=== PATIENT | female | born 1945 | race Caucasian/White ===

== ENCOUNTER 2020-03-17 05:53 | Outpatient (REF) | payer MEDICARE, MEDICAID, SELFPAY | END 2020-03-17 05:54 | disposition home or self-care (01) | LOC: HO.LAB 05:53 | PROVIDERS: PCP Internal Medicine; Visit Provider Internal Medicine | DX: Z20.828 Contact with and (suspected) exposure to other viral communicable diseases (principal) | CPT/HCPCS: C9803; U0003 ==

== ENCOUNTER 2020-04-30 06:42 | Outpatient (REF) | payer MEDICARE, MEDICAID, SELFPAY | END 2020-04-30 06:43 | disposition home or self-care (01) | LOC: HO.LAB 06:42 | PROVIDERS: PCP Internal Medicine; Visit Provider Internal Medicine | DX: Z20.822 Contact with and (suspected) exposure to COVID-19 (principal) | CPT/HCPCS: 36415; C9803; U0003 ==

== ENCOUNTER 2020-05-21 07:07 | Outpatient (REF) | payer MEDICARE, MEDICAID, SELFPAY | END 2020-05-21 07:08 | disposition home or self-care (01) | LOC: HO.LAB 07:07 | PROVIDERS: Visit Provider Internal Medicine | DX: Z20.822 Contact with and (suspected) exposure to COVID-19 (principal) | CPT/HCPCS: 36415; C9803; U0003; U0005 ==

== ENCOUNTER 2021-04-18 08:02 | Outpatient (REF) | payer MEDICARE, MEDICAID, SELFPAY ==
[2021-04-18 08:32] LABS: Binax Now Covid-19 Ag Positive (Negative)
[2021-04-18 08:33] LABS: Binax Internal Control QC Valid
== END 2021-04-18 08:03 | disposition home or self-care (01) ==
LOC: HO.LAB 08:02
PROVIDERS: Visit Provider Internal Medicine
DX: Z20.822 Contact with and (suspected) exposure to COVID-19 (principal)
CPT/HCPCS: C9803

== ENCOUNTER 2022-06-14 08:50 | Outpatient (REF) | payer MEDICARE, MEDICAID, SELFPAY ==
--- NOTE | ~2022-06-14 | XR_ITS ---
EXAMINATION: X-RAY RIGHT SHOULDER X-RAY LEFT SHOULDER CLINICAL INFORMATION: Pain. COMPARISON: None. TECHNIQUE: 2 views of each shoulder. FINDINGS: No acute fracture or subluxation. Mild to moderate joint space narrowing with subcortical sclerosis and osteophytes in the right acromioclavicular joint, suggestive of degenerative osteoarthrosis. No abnormal soft tissue calcifications. The included portions of the lungs, ribs and cardiomediastinum are within normal limits. XR/XR shoulder LT min 2V IMPRESSION: 1. No acute fracture or subluxation. 2. 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
--- NOTE | ~2022-06-14 | XR_ITS ---
EXAMINATION: X-RAY RIGHT SHOULDER X-RAY LEFT SHOULDER CLINICAL INFORMATION: Pain. COMPARISON: None. TECHNIQUE: 2 views of each shoulder. FINDINGS: No acute fracture or subluxation. Mild to moderate joint space narrowing with subcortical sclerosis and osteophytes in the right acromioclavicular joint, suggestive of degenerative osteoarthrosis. No abnormal soft tissue calcifications. The included portions of the lungs, ribs and cardiomediastinum are within normal limits. XR/XR shoulder RT min 2V IMPRESSION: 1. No acute fracture or subluxation. 2. 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
--- NOTE | ~2022-06-14 | XR_ITS ---
EXAMINATION: XR LUMBOSACRAL SPINE CLINICAL INFORMATION: Low back pain. COMPARISON: None TECHNIQUE: Three views of the lumbosacral spine. FINDINGS: No acute compression deformity or subluxation. Mild intervertebral disc height loss at L5-S1. Mild to moderate facet arthropathy with some degree of neural foraminal encroachment at L4-L5 and L5-S1. Prominent anterior osteophytes at multiple levels, largest at L1 and L2. SI joints are symmetric. No significant soft tissue abnormality. XR/XR lumbar spine 2-3V IMPRESSION: 1. No acute compression deformity or subluxation. 2. Mild to moderate lumbar spondylosis, more prominent at L5-S1.
== END 2022-06-14 08:51 | disposition home or self-care (01) ==
LOC: HO.XRAY 08:50
PROVIDERS: PCP Internal Medicine; Visit Provider Internal Medicine Rheumatology
DX: G89.29 Other chronic pain (principal); M54.50 Low back pain, unspecified; M25.512 Pain in left shoulder; M25.511 Pain in right shoulder; M81.0 Age-related osteoporosis without current pathological fracture
CPT/HCPCS: 36415; 72100; 73030; 85025; 85652; 86140; 86200; 86431; 99202

== ENCOUNTER 2022-06-14 09:59 | Outpatient (REF) | payer MEDICARE, MEDICAID, SELFPAY ==
[2022-06-14 10:46] LABS: MANUAL DIFF FLAG NO
[2022-06-14 11:07] LABS: Basophils Percent Auto 0.2 % (0-2); Eosinophils Percent Auto 0.5 % (0-4); Hematocrit 39.7 % (37.0-47.0); Hemoglobin 13.1 g/dl (12.0-16.0); Imm Gran Abs Auto 0.03 X10*3/uL (0.00-0.03); Imm Gran Pct Auto 0.3 % (0.0-0.4); Lymphocytes Absolute Auto 2.4 X10*3/uL (1.2-4.9); Lymphocytes Percent Auto 27.6 % (20-40); Mean Corpuscular Hemoglobin 29.5 pg (27.0-33.0); Mean Corpuscular Volume 89.4 fL (80.0-98.0); Mean Platelet Volume 10.1 fL (9.4-12.3); Monocytes Absolute Auto 0.9 X10*3/uL (0.1-1.2); Neutrophils Absolute Auto 5.4 x10*3/uL (2.0-8.3); Neutrophils Percent Auto 61.4 % (45-73); Platelet Count 298 X10*3/uL (160-400); Red Blood Count 4.44 X10*6/uL (4.20-5.50); Red Cell Distribution Width 13.1 % (11.0-16.0); White Blood Count 8.7 X10*3/uL (4.8-10.8)
[2022-06-14 12:11] LABS: Erythrocyte Sedimentation Rate 51 MM/HR (0-20)
[2022-06-14 15:45] LABS: C Reactive Protein 0.34 mg/dL (< or = 0.50); Rheumatoid Factor < 13.0 IU/mL (<15.0)
[2022-06-18 15:23] LABS: Cyclic Citrullinated Peptide <16 UNITS
== END 2022-06-14 10:00 | disposition home or self-care (01) ==
LOC: HO.10HDL 09:59
PROVIDERS: Visit Provider Internal Medicine Rheumatology
DX: Z13.89 Encounter for screening for other disorder (principal)
CPT/HCPCS: 36415; 85025; 85652; 86140; 86200; 86431

== ENCOUNTER 2024-04-16 11:41 | Outpatient (AMB) | payer OTHER, SELFPAY ==
[2024-04-16 11:53] VITALS: BP 120/76; PULSE 79; O2SAT 99; BMI 28.3
--- NOTE | 2024-04-16 11:53 | A.OFFPC_ITS ---
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 Accompanied by: Daughter Allergies No Known Allergies [No Known Allergies*] Allergy (Verified 04/16/24 11:58) Medication List - Last Reconciled 04/16/24 by Chralene Kidd MD acetaminophen ER (Tylenol 8 Hour) 650 mg PO Q8H PRN calcium carbonate (Calcium 600) 600 mg PO DAILY cholecalciferol (vitamin D3) (Vitamin D3) 50 mcg PO DAILY denosumab (Prolia) 60 mg subcut [id number] mirtazapine 15 mg PO BEDTIME pravastatin 20 mg PO DAILY Tobacco use date assessed: 04/16/24 Fall risk assessment: 1 Fall in past year Last assessed Fall Risk: 04/16/24 Dental Screening Dental Screen Date: 04/16/24 Did you have a dental visit in the last 12 months?: Yes Did you have a dental problem in the last 6 months where you did not have access to dental care?: No Was dental information given to patient?: Patient has 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 PMH includes osteoporosis, last DEXA f/u endo last Prolia 01/2024, hyperlipid, chronic insomnia and anxiety, stable on Mirtazapine. PFSH Medical History Osteoporosis Hx of insomnia Hemorrhoids, internal Breast lump Hyperlipemia Osteoarthritis Allergic rhinitis Surgical History H/O section Family History Sister Colon cancer Social History (Updated 04/16/24 @ 12:36 by Charlene Kidd MD) Household Members: None Household Members Other:: lives alone, Housing: Apartment Alcohol intake: never Patient Tobacco Use Status: Never used Tobacco e-Cigarette/Vaping Use: Never Used Second Hand Smoke Exposure: No service: No Current occupational status: retired Current occupational exposures/hazards: No Cognitive needs: No Hearing needs: No Vision needs: Yes Questionnaire PHQ-9 Over the last 2 weeks, how often have you been bothered by any of the following problems? 1. Little interest or pleasure in doing things: several days 2. Feeling down, depressed, or hopeless: several days 3. Trouble falling or staying asleep, or sleeping too much: nearly every day 4. Feeling tired or having little energy: more than half the days 5. Poor appetite or overeating: several days 6. Feeling bad about yourself - or that you are a failure or have let yourself or your family down: not at all 7. Trouble concentrating on things, such as reading the newspaper or watching television: not at all 8. Moving or speaking so slowly that other people could have noticed. Or the opposite - being so fidgety or restless that you have been moving around a lot more than usual: more than half the days 9. Thoughts that you would be better off or of hurting yourself in some way: not at all Total score: 10 Depression Screening Interpretation: Positive (continue Mirtazapine) Depression Screening Follow-up: Existing condition and In treatment Depression Screening Done: Yes 95737 - PHQ-9 Billing: Yes Source: Developed by Drs. Adelso Case, Fauzia Collado, Abimael Vernon and colleagues, with an educational allan from [employer]. Thrive Questionnaire Date Thrive assessed: 04/16/24 I am a: Patient What is your living situation today?: I have a steady place to live Within the past 12 months, did the food you bought not last and you didn't have the money to get more?: Often true Within the past 12 months, did you worry whether your food would run out before you got money to buy more?: Often true Do you have trouble paying for medicines?: No Do you have trouble getting transportation to medical appointments?: No Do you have trouble paying your heating and electricity bill?: No Do you have trouble taking care of your child, family member or friend?: No Do you have trouble with day-to-day activities such as bathing, preparing meals, shopping, managing finances, etc.?: Yes Are you currently unemployed and looking for a job?: No Are you interested in more education?: No Please select the resources that you would like help with: None Currently or been in a relationship where the following occur: No concerns reported THRIVE Score: 2 AUDIT C Alcohol Use Questionnaire (AUDIT-C) 1. How often do you have a drink containing alcohol?: Never 3. How often do you have six or more drinks on one occasion?: Never Total Score: 0 Score Reviewed/Action Taken: Yes LAURA-7 AMB Questionnaire LAURA-7 Date LAURA - 7 assessed: 04/16/24 Feeling nervous, anxious, or on edge: 1 = Several days Not being able to stop or control worryin = Several days Worrying too much about different things: 0 = Not at all Trouble relaxin = Not at all Being so restless that it is hard to sit still: 0 = Not at all Becoming easily annoyed or irritable: 0 = Not at all Feeling afraid as if something awful might happen: 0 = Not at all Total LAURA-7 score (0-4 normal; 5-9 mild; 10-14 moderate; 15-21 severe): 2 Source: Developed by Drs. Adelso Case, Fauzia Collado, Abimael Vernon and colleagues, with an educational allan from [employer]. LAURA-7 Assessment Billing LAURA-7 Assessment Tool: LAURA-7 Assessment 62661 Review of Systems Const All systems reviewed & are unremarkable except as noted in HPI and below Reports no additional complaints Eyes Reports no additional complaints ENT Reports no additional complaints Card Reports no additional complaints Resp Reports no additional complaints GI Reports no additional complaints Reports no additional complaints Physical exam (Primary Care) Vital Signs: Last Vital Signs Pulse 79 04/16/24 11:53 BP 120/76 04/16/24 11:53 Pulse Ox 99 04/16/24 11:53 BMI result Body Mass Index 28.3 Tobacco/Smoking Status: Tobacco use Status Tobacco use date assessed 04/16/24 04/16/24 12:00 Patient Tobacco Use Status Never used Tobacco 04/16/24 11:53 e-Cigarette/Vaping Use Never Used 04/16/24 12:00 PHQ-9: PHQ-9 Score PHQ-9: Total score 10 04/16/24 12:00 Depression Screening Interpretation: Positive (continue Mirtazapine) Depression Screening Follow-up: Existing condition and In treatment Thrive Assessment: Date of Thrive Assessment Date Thrive assessed 04/16/24 04/16/24 12:00 Currently or been in a relationship where the following occur: No concerns reported Const General: no acute distress HENMT Head: Yes normal to inspection Ears: hearing grossly normal bilaterally Face and sinus: Yes normal facial exam Eyes General: appearance normal, both eyes and all related structures Neck Neck: Yes no lymphadenopathy and Yes supple Resp Effort & Inspection: normal respiratory effort Auscultation: clear to auscultation bilaterally Cardio Rhythm: regular rhythm Heart sounds: S1 normal heart sound present and S2 normal heart sound present GI Inspection: Yes normal to inspection Palpation (GI): Soft to palpation Percussion: Yes normal to percussion Auscultation: normal bowel sounds Coding Level of Care Code New Pt Level 4 (39253) Diagnoses Hx of screening mammography Z92.89 Hyperlipemia E78.5 Osteoporosis M81.0 Hx of colonoscopy Z98.890 Additional Codes LAURA-7 Assessment Billing - LAURA-7 Assessment Tool: LAURA-7 Assessment 04071 ([id number]) PHQ-9 - 34960 - PHQ-9 Billing: Yes ([id number]) Assessment & Plan Assessment & Plan (1) Hx of screening mammography: Comment: [facility] 2023 Code(s): Z92.89 - Personal history of other medical treatment Category: Medical Plan: up to date (2) Hyperlipemia: Code(s): E78.5 - Hyperlipidemia, unspecified Category: Medical Plan: cont statin (3) Osteoporosis: Comment: 06/2019 DEXA T scores: LS spine-2.6, hip -2.6([facility]) Reportedly the receiving regular Prolia injections, established with endo at [facility], last Prolia 02/2024 Code(s): M81.0 - Age-related osteoporosis without current pathological fracture Category: Medical Plan: Continue vitamin-D calcium supplement weight-bearing exercises. Obtain records from [facility] (4) Hx of colonoscopy: Code(s): Z98.890 - Other specified postprocedural states Category: Surgical Plan: Check records from [facility] Orders: Orders Lipid Panel 2 Months E78.5 - Hyperlipidemia, unspecified, M81.0 - Age-related osteoporosis without current pathological fracture TSH reflex Free T4 2 Months E78.5 - Hyperlipidemia, unspecified, M81.0 - Age- related osteoporosis without current pathological fracture Vitamin D 25-OH Total 2 Months E78.5 - Hyperlipidemia, unspecified, M81.0 - Age-related osteoporosis without current pathological fracture Comprehensive [place]. Panel Fast 2 Months E78.5 - Hyperlipidemia, unspecified, M81.0 - Age-related osteoporosis without current pathological fracture Complete Blood Count Auto Diff 2 Months E78.5 - Hyperlipidemia, unspecified, M81.0 - Age-related osteoporosis without current pathological fracture Medications: New acetaminophen ER (Tylenol 8 Hour) 650 mg PO Q8H PRN 90 tabs 2RF pain calcium carbonate (Calcium 600) 600 mg PO DAILY 90 tabs 3RF cholecalciferol (vitamin D3) (Vitamin D3) 50 mcg PO DAILY 90 tabs 3RF mirtazapine 15 mg PO BEDTIME 90 tabs 3RF pravastatin 20 mg PO DAILY 90 tabs 3RF
== END 2024-04-16 13:04 | disposition home or self-care (01) ==
PROVIDERS: PCP Internal Medicine; Visit Provider Internal Medicine
DX: Z92.89 Personal history of other medical treatment (principal); E78.5 Hyperlipidemia, unspecified; M81.0 Age-related osteoporosis without current pathological fracture; Z98.890 Other specified postprocedural states

== ENCOUNTER → 2024-04-16 11:41 | Outpatient (BNVA) | payer OTHER, SELFPAY | PROVIDERS: PCP Internal Medicine; Visit Provider Internal Medicine | DX: I10 Essential (primary) hypertension (principal); M19.90 Unspecified osteoarthritis, unspecified site; M81.0 Age-related osteoporosis without current pathological fracture; E78.5 Hyperlipidemia, unspecified; F51.04 Psychophysiologic insomnia; F41.9 Anxiety disorder, unspecified; Z98.890 Other specified postprocedural states; Z79.899 Other long term (current) drug therapy | CPT/HCPCS: 96127; 99202 ==

== ENCOUNTER 2024-06-18 10:34 | Outpatient (AMB) | payer OTHER, SELFPAY ==
[2024-06-18 10:50] VITALS: BP 118/76; PULSE 68; RESP 18; TEMP 36.8; O2SAT 96; BMI 28.5
--- NOTE | 2024-06-18 10:50 | A.OFFPC_ITS ---
Vital Signs 06/18/24 10:50 Height 4 ft 11 in Weight 141 lb BMI 28.5 BP 118/76 Blood Pressure Location Lt brachial Position Sitting Respiration 18 Pulse 68 Pulse Source Pulse Oximeter Temp 98.3 F Temp Source Oral Pulse Oximetry (%) 96 Oxygen Delivery Method Room Air Intake Visit Reasons: 2 month follow up Intake Note: Pt is here today for 2 months follow up visit. Allergies No Known Allergies [No Known Allergies*] Allergy (Verified 06/18/24 10:59) Medication List - Last Reconciled 06/18/24 by Charlene Kidd MD acetaminophen ER (Tylenol 8 Hour) 650 mg PO Q8H PRN calcium carbonate (Calcium 600) 600 mg PO DAILY cholecalciferol (vitamin D3) (Vitamin D3) 50 mcg PO DAILY denosumab (Prolia) 60 mg subcut [id number] mirtazapine 15 mg PO BEDTIME pravastatin 20 mg PO DAILY Tobacco use date assessed: 06/18/24 Fall risk assessment: No Falls in past year Last assessed Fall Risk: 06/18/24 Dental Screening Dental Screen Date: 04/16/24 HPI 2 month follow up HPI Details Pt presents for f/u hyperlipid and chronic anxiety, stable on meds. Patient has been treated for osteoporosis by rheumatology at [facility] getting Prolia inj. She had a recent DEXA and will bring the copy of the report. [facility] Medical History Osteoporosis Hx of insomnia Hemorrhoids, internal Breast lump Hyperlipemia Osteoarthritis Allergic rhinitis Surgical History H/O section Family History Sister Colon cancer Social History Household Members: None Household Members Other:: lives alone, Housing: Apartment Alcohol intake: never Patient Tobacco Use Status: Never used Tobacco e-Cigarette/Vaping Use: Never Used Second Hand Smoke Exposure: No service: No Current occupational status: retired Current occupational exposures/hazards: No Cognitive needs: No Hearing needs: No Vision needs: Yes Questionnaire PHQ-9 Over the last 2 weeks, how often have you been bothered by any of the following problems? 1. Little interest or pleasure in doing things: several days 2. Feeling down, depressed, or hopeless: several days 3. Trouble falling or staying asleep, or sleeping too much: nearly every day 4. Feeling tired or having little energy: more than half the days 5. Poor appetite or overeating: not at all 6. Feeling bad about yourself - or that you are a failure or have let yourself or your family down: not at all 7. Trouble concentrating on things, such as reading the newspaper or watching television: not at all 8. Moving or speaking so slowly that other people could have noticed. Or the opposite - being so fidgety or restless that you have been moving around a lot more than usual: more than half the days 9. Thoughts that you would be better off or of hurting yourself in some way: not at all Total score: 9 Depression Screening Interpretation: Negative (continue Mirtazapine) Depression Screening Done: Yes 89367 - PHQ-9 Billing: Yes Source: Developed by Drs. Adelso Case, Fauzia Collado, Abimael Vernon and colleagues, with an educational allan from [employer]. Thrive Questionnaire Date Thrive assessed: 04/16/24 I am a: Patient What is your living situation today?: I have a steady place to live Within the past 12 months, did the food you bought not last and you didn't have the money to get more?: Often true Within the past 12 months, did you worry whether your food would run out before you got money to buy more?: Often true Do you have trouble paying for medicines?: No Do you have trouble getting transportation to medical appointments?: No Do you have trouble paying your heating and electricity bill?: No Do you have trouble taking care of your child, family member or friend?: No Do you have trouble with day-to-day activities such as bathing, preparing meals, shopping, managing finances, etc.?: Yes Are you currently unemployed and looking for a job?: No Are you interested in more education?: No Please select the resources that you would like help with: None Currently or been in a relationship where the following occur: No concerns reported THRIVE Score: 2 LAURA-7 AMB Questionnaire LAURA-7 Date LAURA - 7 assessed: 04/16/24 Source: Developed by Drs. Adelso Case, Fauzia Collado, Abimael Vernon and colleagues, with an educational allan from [employer]. Review of Systems Const All systems reviewed & are unremarkable except as noted in HPI and below Reports no additional complaints Eyes Reports no additional complaints ENT Reports no additional complaints Card Reports no additional complaints Resp Reports no additional complaints GI Reports no additional complaints Reports no additional complaints Physical exam (Primary Care) Vital Signs: Last Vital Signs Temp 98.3 F 06/18/24 10:50 Pulse 68 06/18/24 10:50 Resp 18 06/18/24 10:50 BP 118/76 06/18/24 10:50 Pulse Ox 96 06/18/24 10:50 Oxygen Delivery Method Room Air 06/18/24 10:50 BMI result Body Mass Index 28.5 Tobacco/Smoking Status: Tobacco use Status Tobacco use date assessed 06/18/24 06/18/24 11:01 Patient Tobacco Use Status Never used Tobacco 06/18/24 11:01 e-Cigarette/Vaping Use Never Used 06/18/24 10:52 PHQ-9: PHQ-9 Score PHQ-9: Total score 9 06/18/24 11:03 Depression Screening Interpretation: Negative (continue Mirtazapine) Thrive Assessment: Date of Thrive Assessment Date Thrive assessed 04/16/24 06/18/24 10:52 Currently or been in a relationship where the following occur: No concerns reported Const General: no acute distress HENMT General nose exam: Normal external nose present Mouth: Normal oral and palatal mucosa present Eyes General: appearance normal, both eyes and all related structures Neck Neck: Yes no lymphadenopathy and Yes supple Resp Effort & Inspection: normal respiratory effort Auscultation: clear to auscultation bilaterally Cardio Rhythm: regular rhythm Heart sounds: S1 normal heart sound present and S2 normal heart sound present GI Inspection: Yes normal to inspection Palpation (GI): Soft to palpation Percussion: Yes normal to percussion Auscultation: normal bowel sounds Coding Level of Care Code Est Pt Level 4 (66893) Diagnoses Hyperlipemia E78.5 Osteoporosis M81.0 Chronic anxiety F41.9 Additional Codes PHQ-9 - 36087 - PHQ-9 Billing: Yes ([id number]) Assessment & Plan Assessment & Plan (1) Hyperlipemia: Code(s): E78.5 - Hyperlipidemia, unspecified Category: Medical Plan: Continue statin return for fasting blood work (2) Osteoporosis: Comment: 06/2019 DEXA T scores: LS spine-2.6, hip -2.6([facility]) Reportedly the receiving regular Prolia injections, established with judd at [facility], last Prolia 02/2024 Code(s): M81.0 - Age-related osteoporosis without current pathological fracture Category: Medical Plan: Continue vitamin-D supplement weight-bearing exercises 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 Panel Fast 1 Year E78.5 - Hyperlipidemia, unspecified, M81.0 - Age-related osteoporosis without current pathological fracture Complete Blood Count Auto Diff 1 Year E78.5 - Hyperlipidemia, unspecified, M81.0 - Age-related osteoporosis without current pathological fracture Lipid Panel 1 Year E78.5 - Hyperlipidemia, unspecified, M81.0 - Age-related osteoporosis without current pathological fracture Vitamin D 25-OH Total 1 Year E78.5 - Hyperlipidemia, unspecified, M81.0 - Age- related osteoporosis without current pathological fracture
--- OUTSIDE RECORDS SUMMARY | 2024-06-18 13:21 | XMS_ITS | Clinical Summary ---
Author Organization [facility] Address [address] [place] [address] Phone Care Team Providers Care Executive Legal Secretary Name Role Phone Jose Steward MD Primary Care Provider [phone] Allergies No known active allergies Medications calcium carbonate 1,500 mg (600 mg elemental calcium) tablet Take 1 tablet (1,500 mg total) by mouth 1 (one) time each day. 12/06/2023 Active pravastatin (PRAVACHOL) 20 mg tablet Take 1 tablet (20 mg total) by mouth 1 (one) time each day. Active cholecalciferol (VITAMIN D-3) 50 mcg (2,000 unit) tablet Take 1 tablet (2,000 Units total) by mouth 1 (one) time each day. 12/06/2023 Active acetaminophen (TYLENOL 8 HOUR) 650 mg 8 hr tablet Take 1 tablet (650 mg total) by mouth 3 (three) times a day. 11/30/2023 Active Active Problems Problem Noted Date Diagnosed Date Allergic rhinitis 01/19/2019 Osteoarthritis 01/19/2019 Osteoporosis 10/16/2017 Hyperlipidemia 05/03/2017 Hypertension 05/03/2017 Insomnia 10/31/2016 Diverticulosis 09/17/2014 Internal hemorrhoids 09/17/2014 Lump or mass in breast 12/25/2013 Immunizations Name Administration Dates Next Due Influenza Quadravalent, miah mbinant, 0.5ml, preservative free (Flublok) 18yo and older 01/07/2020 Pneumococcal conjugate 13 va lent (Prevnar 13, PCV13) 2mo and older 10/16/2017 Pneumococcal polysaccharide 23 valent (Pneumovax 23) 2yo and older 03/23/2013 Medical History Medical History Date Comments Diverticulosis 09/17/2014 DX:Diverticulosi s Hyperlipidemia 05/03/2017 DX:Hyperlipidemi a Hypertension 05/03/2017 DX:Hypertension Insomnia 10/31/2016 DX:Insomnia Osteoporosis 10/16/2017 DX:Osteoporosis Lump or mass in breast 12/25/2013 DX:Lump o r mass in breast Social History Tobacco Use Types Packs/Day Years Used Date Smoking Tobacco: Never Smokeless Tobacco: Never Comments No Sex and Gender Information Value Date Recorded Sex Assigned at Not on file Legal Sex Female 4:57 PM EST Gender Identity Not on file Sexual Orientation Not on file Obstetrics History Para Term AB IAB SAB Ectopic Multiple Livin g Live Births 3 Last Filed Vital Signs Vital Sign Reading Time Taken Comments Blood Pressure 132/82 02/20/2024 2:13 PM EST Pulse 69 02/20/2024 2:13 PM EST Temperature 36.4 ??C (97.6 ??F) 02/20/2024 2:13 PM ES T Respiratory Rate - - Oxygen Saturation - - Inhaled Oxygen Concentration - - Weight 59 kg (130 lb) 02/13/2024 12:56 PM EST Height 152.4 cm (5') 02/13/2024 12:56 PM EST Body Mass Index 25.39 02/13/2024 12:56 PM EST Plan of Treatment Upcoming Encounters Date Type Department Care Team (Late st Contact Info) Description 08/20/2024 2:00 PM EDT Clinical Support [address] [address] Health Maintenance Due Date Last Done Comments DTaP,Tdap,and Td Vaccines (1 - Tdap) 1964 RSV Immunization Patients 60+ Years Old (1 - 1-dose 75+ series) 2021 Depression Screening 03/07/2022 Falls Risk Assessment 03/07/2022 Hepatitis C Screening 03/07/2022 Social Influencers of Health Screening 03/07/2022 Medicare Annual Wellness Visit 08/21/2023 08/20/2022 Hypertension/CHF/CAD Annual BMP Blood Test 02/05/2025 02/06/2024, 02/06/2024, 08/28/2023 Cholesterol Screening (Lipid Panel) 02/05/2029 02/06/2024, 02/06/2024, 08/28/2023 Osteoporosis Screening (Bone Density Screening) 03/07/2033 03/07/2023, 06/19/2019 Pneumococcal Vaccine: 50+ Years Completed 10/16/2017, 03/23/2013 Influenza Vaccine Completed 01/07/2024, , 01/15/2022, Additional history exists Zoster Vaccines Completed 01/07/2024, 01/07/2023 COVID-19 Vaccine Completed 02/03/2024, , 02/07/2021, Additional history exists HIB Vaccines Aged Out No longer eligi ble based on patient's age to complete this topic HPV Vaccines Aged Out No longer eligi ble based on patient's age to complete this topic Hepatitis A Vaccines Aged Out No long er eligible based on patient's age to complete this topic Hepatitis B Vaccines Aged Out No long er eligible based on patient's age to complete this topic IPV Vaccines Aged Out No longer eligi ble based on patient's age to complete this topic MMR Vaccines Aged Out No longer eligi ble based on patient's age to complete this topic Meningococcal ACWY Vaccine Aged Out N o longer eligible based on patient's age to complete this topic Meningococcal B Vacine Aged Out No lo nger eligible based on patient's age to complete this topic RSV Immunization Patients Under 20 months Aged Out No longer eligible based on patient's age to complete this topic Varicella Vaccines Aged Out No longer eligible based on patient's age to complete this topic Procedures Procedure Name Priority Date/Time Associated Diagnosis Comments ANNUAL BMP BLOOD TEST Routine 02/06/2024 LIPID PANEL Routine 02/06/2024 [facility] DEXA AXIAL SKELETON Routine 03/07/2023 11:15 AM EST Age-related osteoporosis without current pathological fracture from Last 3 Months or Most Recently Relevant to Health Maintenance Results * Annual BMP Blood Test (02/06/2024) Annual BMP Blood Test Abstracted us Historical Provider MD HEALTH MAINTENANCE Final Result * (ABNORMAL) Lipid panel (02/06/2024) LDL/HDL Ratio 4 0 - 4 Triglycerides 142 0 - 150 mg/dL Cholesterol 190 0 - 200 mg/dL HDL 43 >=40 mg/dL LDL Cholesterol 119(A) 0 - 100 mg/dL Blood Venous blood specimen / Unknown us Historical Provider LAB BLOOD ORDERABLES Shannan l Result * [facility] DEXA AXIAL SKELETON (03/07/2023 11:15 AM EST) Anatomical Region Laterality Modality Mammography 03/07/2023 10:0 9 AM EST Narrative 03/07/2023 11:15 AM EST [facility] Diagnostic Imaging Department [address] [place] [address] Patient: ??WOODS,MARIA ?/Age/Sex: 1945 - 77 - F Unit#: ??[id number] ? Location/Status: ??SPDIMAM/REG CLI ? Mnemonic/Ordering Site: ??MAMDEXAAX/SPMAIN Ordering Physician: ??JOSE STEWARD MD [facility] Dexa Axial Skeleton - 03/07/23 2 Report Status:Signed HISTORY: ??The patient is a 77-year-old postmenopausal female with clinical concern for metabolic bone disease. FINDINGS: ??Dual energy x-ray absorptiometry of the lumbar spine and femurs is performed. The mean bone mineral density at L2-3 is 0.891 gm/cm2 which is 74% of that of young normals and 92% of that of age matched controls. This yields a T- score of -2.6 and a Z-score of -0.7 which is diagnostic of osteoporosis. The mean bone mineral density of the femurs bilaterally is 0.810 gm/cm2 which is 80% of that of young normals and 106% of that of age matched controls. ??This yields a T-score of -1.6 and a Z-score of 0.3 which is diagnostic of osteopenia. IMPRESSION: 1. Osteoporosis. ??There has been an increase of 0.7% in bone mineral density in the lumbar spine since the prior examination of 06/19/2019. ??There has been a decrease of 1.7% in bone mineral density in the right femur and an increase of 6.0% in bone mineral density in the left femur. 2. FRAX analysis yields a 10-year probability of major osteoporotic fracture of 9.4% and a 10-year probability of hip fracture of 2.8%. Code 49606 Dictating Physician: ??RAMONE LOPEZ MD Electronically Signed by: ??RAMONE LOPEZ MD Dic Date/Time: ??03/07/23 111 Sign date/Time: ??03/07/23 1115 Procedure Note Ramone Lopez MD - 05/14/2023 [facility] Diagnostic Imaging Department [address] [place] [id number] Patient: PEGGYENE Irizarry/Age/Sex: 1945 - 77 - F Unit#: [id number] Location/Status: SPDIMAM/REG CLI [facility] Ordering Physician: JOSE STEWARD MD [facility] Dexa Axial Skeleton - 03/07/23 - 1102 Report Status:Signed HISTORY: The patient is a 77-year-old postmenopausal female withclinical concern for metabolic bone disease. FINDINGS: Dual energy x-ray absorptiometry of the lumbar spine and femursis performed. The mean bone mineral density at L2-3 is 0.891 gm/cm2 which is74% of that of young normals and 92% of that of age matched controls. This yieldsa T- score of -2.6 and a Z-score of -0.7 which is diagnostic of osteoporosis. The mean bone mineral density of the femurs bilaterally is 0.810 gm/[id number] is 80% of that of young normals and 106% of that of age matched controls.This yields a T-score of -1.6 and a Z-score of 0.3 which is diagnostic ofosteopenia. IMPRESSION: 1. Osteoporosis. There has been an increase of 0.7% in bone mineraldensity in the lumbar spine since the prior examination of 06/19/2019. There has brissa decrease of 1.7% in bone mineral density in the right femur and anincrease of 6.0% in bone mineral density in the left femur. 2. FRAX analysis yields a 10-year probability of major osteoporoticfracture of 9.4% and a 10-year probability of hip fracture of 2.8%. Code 05256 Dictating Physician: RAMONE LOPEZ MD Electronically Signed by: RAMONE LOPEZ MD Dic Date/Time: 03/07/23 1114 Sign date/Time: 03/07/23 111 Jose Steward MD IMG BI PROCEDURES Final Result from Last 3 Months or Most Recently Relevant to Health Maintenance Insurance [facility] MEDIC[facility] Member Subscriber Plan / Payer (Ef fective 2023-Present) Name:Ene Woods Relation to Subscriber:Self Name:Ene Woods Payer ID:[id number] Group ID:[id number] Type:Not on file Address: [place] [address] [address] [phone] Care Teams Executive Legal Secretary Relationship Specialty Start Date End Date Jose Steward MD PCP - General Internal Medicine 01/16/19
== END 2024-06-18 11:49 | disposition home or self-care (01) ==
LOC: HO.HMCC 10:35
PROVIDERS: PCP Internal Medicine; Visit Provider Internal Medicine
DX: E78.5 Hyperlipidemia, unspecified (principal); M81.0 Age-related osteoporosis without current pathological fracture; F41.9 Anxiety disorder, unspecified

== ENCOUNTER 2024-06-18 10:34 | Outpatient (REF) | payer OTHER, SELFPAY ==
[2024-06-18 13:35] LABS: MANUAL DIFF FLAG NO
[2024-06-18 13:46] LABS: Basophils Percent Auto 0.3 % (0-2); Eosinophils Absolute Auto 0.1 X10*3/uL (0.0-0.4); Eosinophils Percent Auto 1.1 % (0-4); Hematocrit 39.2 % (37.0-47.0); Hemoglobin 12.9 g/dl (12.0-16.0); Imm Gran Abs Auto 0.02 X10*3/uL (0.00-0.03); Imm Gran Pct Auto 0.3 % (0.0-0.4); Lymphocytes Absolute Auto 2.3 X10*3/uL (1.2-4.9); Lymphocytes Percent Auto 31.9 % (20-40); Mean Corpuscular HGB Conc 32.9 g/dl (31.0-35.0); Mean Corpuscular Hemoglobin 29.5 pg (27.0-33.0); Mean Corpuscular Volume 89.7 fL (80.0-98.0); Mean Platelet Volume 10.3 fL (9.4-12.3); Monocytes Absolute Auto 0.9 X10*3/uL (0.1-1.2); Monocytes Percent Auto 11.8 % (2-11); Neutrophils Percent Auto 54.6 % (45-73); Platelet Count 259 X10*3/uL (160-400); Red Blood Count 4.37 X10*6/uL (4.20-5.50); Red Cell Distribution Width 13.2 % (11.0-16.0); White Blood Count 7.2 X10*3/uL (4.8-10.8)
[2024-06-18 14:24] LABS: Alanine Aminotransferase 28 U/L (0-31); Albumin Level 4.2 g/dL (3.5-5.0); Alkaline Phosphatase 66 U/L (39-117); Anion Gap 11 (12-20); Aspartate Amino Transferase 30 U/L (5-31); Bilirubin Total 0.4 mg/dL (0.0-1.0); Blood Urea Nitrogen 15 mg/dL (9-16); Calcium 9.7 mg/dL (8.4-10.2); Carbon Dioxide 28 mmol/L (22-29); Chloride 106 mmol/L (96-108); Cholesterol 178 mg/dL (<200); Estimated Glomerular Filt Rate > 60; Glucose Fasting 84 mg/dL (60-99); HDL Cholesterol 39 mg/dL (>40); LDL Cholesterol Calculated 108 mg/dL (<100); Potassium 3.8 mmol/L (3.3-5.1); Sodium 141 mmol/L (135-145); Total Protein 8.2 g/dL (6.5-8.0); Triglycerides 157 mg/dL (<150)
[2024-06-18 14:29] LABS: TSH reflex Free T4 3.11 uIU/mL (0.32-4.0); Vitamin D 25-OH Total 43.9 ng/mL (>30)
--- OUTSIDE RECORDS SUMMARY | 2024-06-18 14:55 | XMS_ITS | Clinical Summary ---
Author Organization [facility] Address [address] [place] [address] Phone Care Team Providers Care Shoe Handler Name Role Phone Jose Steward MD Primary Care Provider [phone] Allergies No known active allergies Medications calcium [...] Description 08/20/2024 2:00 PM EDT Clinical Support [address] [address] Health Maintenance Due Date Last Done Comments [...] TEST Routine 02/06/2024 LIPID PANEL Routine 02/06/2024 [facility] DEXA AXIAL SKELETON Routine 03/07/2023 11:15 AM [...] LAB BLOOD ORDERABLES Shannan l Result * [facility] DEXA AXIAL SKELETON (03/07/2023 11:15 AM EST) Anatomical Region Laterality Modality Mammography 03/07/2023 10:0 9 AM EST Narrative 03/07/2023 11:15 AM EST [facility] Diagnostic Imaging Department [address] [place] [address] Patient: ??WOODS,MARIA ?/Age/Sex: 1945 - 77 - F Unit#: ??[id number] ? Location/Status: ??SPDIMAM/REG CLI ? Mnemonic/Ordering Site: ??MAMDEXAAX/SPMAIN Ordering Physician: ??JOSE STEWARD MD [facility] Dexa Axial Skeleton - 03/07/23 2 Report [...] probability of hip fracture of 2.8%. Code 57694 Dictating Physician: ??RAMONE LOPEZ MD Electronically Signed by: ??RAMONE LOPEZ MD Dic Date/Time: ??03/07/23 111 Sign date/Time: ??03/07/23 1115 Procedure Note Ramone Lopez MD - 05/14/2023 [facility] Diagnostic Imaging Department [address] [place] [address] Patient: PEGGYENE Irizarry/Age/Sex: 1945 - 77 - F Unit#: [id number] Location/Status: SPDIMAM/REG CLI [facility] Ordering Physician: JOSE STEWARD MD [facility] Dexa [...] density of the femurs bilaterally is 0.810 gm/ko7cncjj is 80% of that of young normals [...] probability of hip fracture of 2.8%. Code 09077 Dictating Physician: RAMONE LOPEZ MD Electronically Signed by: RAMONE LOPEZ MD Dic Date/Time: 03/07/23 1114 Sign date/Time: 03/07/23 111 Jose Steward MD IMG BI PROCEDURES Final Result from Last 3 Months or Most Recently Relevant to Health Maintenance Insurance [facility] MEDICARE Member Subscriber Plan / Payer (Ef fective 2023-Present) Name:Ene Woods Relation to Subscriber:Self Name:Ene Woods Payer ID:[id number] Group ID:[id number] Type:Not on file Address: [place] [address] [address] [phone] Care Teams Shoe Handler Relationship Specialty Start Date End Date Jose Steward MD PCP - General Internal Medicine 01/16/19
== END 2024-06-18 10:35 | disposition home or self-care (01) ==
LOC: HO.HMGCLDS 10:34
PROVIDERS: PCP Internal Medicine; Visit Provider Internal Medicine
DX: E78.5 Hyperlipidemia, unspecified (principal); M81.0 Age-related osteoporosis without current pathological fracture; F41.9 Anxiety disorder, unspecified
CPT/HCPCS: 36415; 80053; 80061; 82306; 84443; 85025; 96127; 99212

== ENCOUNTER 2025-01-12 10:15 | Outpatient (AMB) | payer OTHER, SELFPAY ==
[2025-01-12 11:00] VITALS: BP 124/74; PULSE 76; RESP 17; TEMP 36.8; O2SAT 97; BMI 27.9
--- NOTE | 2025-01-12 11:00 | A.OFFPC_ITS ---
Vital Signs 01/12/25 11:00 Height 4 ft 11 in Weight 138 lb BMI 27.9 BP 124/74 Blood Pressure Location Lt brachial Position Sitting Respiration 17 Pulse 76 Pulse Source Pulse Oximeter Temp 98.2 F Temp Source Oral Pulse Oximetry (%) 97 Oxygen Delivery Method Room Air Intake Visit Reasons: memory evaluation Intake Note: Pt is here today for a follow up visit to discuss memory issues. Allergies No Known Allergies (No Known Allergies*) Allergy (Verified 01/12/25 11:02) Medication List - Last Reconciled 01/12/25 by Charlene Kidd MD acetaminophen ER (Tylenol 8 Hour) 650 mg PO Q8H PRN [bedrail As directed] calcium carbonate (Calcium 600) 600 mg PO DAILY cholecalciferol (vitamin D3) (Vitamin D3) 50 mcg PO DAILY denosumab (Prolia) 60 mg subcut [id number] [Handheld shower head As directed] mirtazapine 15 mg PO BEDTIME pravastatin 20 mg PO DAILY [shower chair As directed] Tobacco use date assessed: 01/12/25 Fall risk assessment: No Falls in past year Last assessed Fall Risk: 01/12/25 Dental Screening Dental Screen Date: 04/16/24 HPI memory evaluation HPI Details Patient presents with her daughter and hide cleaner for a follow- up patient reports frequent episodes of insomnia but has been taking naps during a day. She has been taking mirtazapine every night and reports slightly improved anxiety. Patient has been having episodes of forgetfulness and confusion for the last few months. Patient has been taking pravastatin for hyperlipidemia and is established with special education classroom aide at [place] for osteoporosis getting Prolia injections for the last year. [facility] Medical History Osteoporosis Hx of insomnia Hemorrhoids, internal Breast lump Hyperlipemia Osteoarthritis Allergic rhinitis Surgical History H/O section Family History Sister Colon cancer Social History Household Members: None Household Members Other:: lives alone, Housing: Apartment Alcohol intake: never Patient Tobacco Use Status: Never used Tobacco e-Cigarette/Vaping Use: Never Used Second Hand Smoke Exposure: No service: No Current occupational status: retired Current occupational exposures/hazards: No Cognitive needs: No Hearing needs: No Vision needs: Yes Questionnaire PHQ-9 Over the last 2 weeks, how often have you been bothered by any of the following problems? 1. Little interest or pleasure in doing things: several days 2. Feeling down, depressed, or hopeless: several days 3. Trouble falling or staying asleep, or sleeping too much: nearly every day 4. Feeling tired or having little energy: more than half the days 5. Poor appetite or overeating: not at all 6. Feeling bad about yourself - or that you are a failure or have let yourself or your family down: not at all 7. Trouble concentrating on things, such as reading the newspaper or watching television: not at all 8. Moving or speaking so slowly that other people could have noticed. Or the opposite - being so fidgety or restless that you have been moving around a lot more than usual: more than half the days 9. Thoughts that you would be better off or of hurting yourself in some way: not at all Total score: 9 Depression Screening Interpretation: Negative (continue Mirtazapine) Depression Screening Done: Yes Source: Developed by Drs. Adelso Case, Fauzia Collado, Abimael Vernon and colleagues, with an educational allan from [employer]. Thrive Questionnaire Date Thrive assessed: 04/16/24 I am a: Patient What is your living situation today?: I have a steady place to live Within the past 12 months, did the food you bought not last and you didn't have the money to get more?: Often true Within the past 12 months, did you worry whether your food would run out before you got money to buy more?: Often true Do you have trouble paying for medicines?: No Do you have trouble getting transportation to medical appointments?: No Do you have trouble paying your heating and electricity bill?: No Do you have trouble taking care of your child, family member or friend?: No Do you have trouble with day-to-day activities such as bathing, preparing meals, shopping, managing finances, etc.?: Yes Are you currently unemployed and looking for a job?: No Are you interested in more education?: No Please select the resources that you would like help with: None Currently or been in a relationship where the following occur: No concerns reported THRIVE Score: 2 LAURA-7 AMB Questionnaire LAURA-7 Date LAURA - 7 assessed: 04/16/24 Feeling nervous, anxious, or on edge: 0 = Not at all Not being able to stop or control worryin = Not at all Worrying too much about different things: 0 = Not at all Trouble relaxin = Not at all Being so restless that it is hard to sit still: 0 = Not at all Becoming easily annoyed or irritable: 0 = Not at all Feeling afraid as if something awful might happen: 0 = Not at all Total LAURA-7 score (0-4 normal; 5-9 mild; 10-14 moderate; 15-21 severe): 0 Source: Developed by Drs. Adelso Case, Fauzia Collado, Abimael Vernon and colleagues, with an educational allan from [employer]. Review of Systems Const All systems reviewed & are unremarkable except as noted in HPI and below Eyes Reports no additional complaints ENT Reports no additional complaints Card Reports no additional complaints Resp Reports no additional complaints GI Reports no additional complaints Reports no additional complaints Physical exam (Primary Care) Vital Signs: Last Vital Signs Temp 98.2 F 01/12/25 11:00 Pulse 76 01/12/25 11:00 Resp 17 01/12/25 11:00 BP 124/74 01/12/25 11:00 Pulse Ox 97 01/12/25 11:00 Oxygen Delivery Method Room Air 01/12/25 11:00 BMI result Body Mass Index 27.9 Tobacco/Smoking Status: Tobacco use Status Tobacco use date assessed 01/12/25 01/12/25 11:07 Patient Tobacco Use Status Never used Tobacco 01/12/25 11:07 e-Cigarette/Vaping Use Never Used 01/12/25 11:01 PHQ-9: PHQ-9 Score PHQ-9: Total score 9 01/12/25 11:07 Depression Screening Interpretation: Negative (continue Mirtazapine) Thrive Assessment: Date of Thrive Assessment Date Thrive assessed 04/16/24 01/12/25 11:01 Currently or been in a relationship where the following occur: No concerns reported Const General: no acute distress HENMT Head: Yes normal to inspection Ears: TM's normal bilaterally Throat: Yes posterior oropharynx normal Neck Neck: Yes no lymphadenopathy and Yes supple Resp Effort & Inspection: normal respiratory effort Auscultation: clear to auscultation bilaterally Cardio Rhythm: regular rhythm Heart sounds: S1 normal heart sound present and S2 normal heart sound present GI Inspection: Yes normal to inspection Palpation (GI): Soft to palpation Percussion: Yes normal to percussion Auscultation: normal bowel sounds Coding Level of Care Code Est Pt Level 4 (57227) Diagnoses Hyperlipemia E78.5 Chronic anxiety F41.9 Memory loss R41.3 Assessment & Plan Assessment & Plan (1) Hyperlipemia: Code(s): E78.5 - Hyperlipidemia, unspecified Category: Medical Plan: Continue statin return for fasting blood work (2) Chronic anxiety: Code(s): F41.9 - Anxiety disorder, unspecified Category: Medical Plan: Continue mirtazapine, stress management discussed with the patient (3) Memory loss: Code(s): R41.3 - Other amnesia Category: Medical Plan: Sleep hygiene regular physical activity social interaction discussed with the patient. She will return for fasting labs including TSH and B12 level. Donepezil 5 mg daily will be started. Patient will follow-up in 3 months Orders: Orders Lipid Panel Today E78.5 - Hyperlipidemia, unspecified, F41.9 - Anxiety disorder, unspecified Complete Blood Count Auto Diff Today E78.5 - Hyperlipidemia, unspecified, F41.9 - Anxiety disorder, unspecified Vitamin B12 and Folate Today E78.5 - Hyperlipidemia, unspecified, F41.9 - Anxiety disorder, unspecified Vitamin D 25-OH Total Today E78.5 - Hyperlipidemia, unspecified, F41.9 - Anxiety disorder, unspecified Comprehensive [place]. Panel Fast Today E78.5 - Hyperlipidemia, unspecified, F41.9 - Anxiety disorder, unspecified TSH reflex Free T4 Today E78.5 - Hyperlipidemia, unspecified, F41.9 - Anxiety disorder, unspecified Medications: New donepezil 5 mg PO DAILY 90 tabs 3RF
--- OUTSIDE RECORDS SUMMARY | 2025-01-12 12:13 | XMS_ITS | Clinical Summary ---
Author Organization [facility] Address [address] [place] [address] Phone Care Team Providers Care Medical Coding Specialist Name Role Phone Jose Steward MD Primary Care Provider [phone] Allergies No known active allergies Medications calcium [...] 3 (three) times a day. 11/30/2023 Active denosumab (PROLIA) 60 mg/mL syringe syringeIndication s:Osteoporosis without current pathological fracture, unspecified osteoporosis type Inject 1 mL (60 mg total) under the skin 1 (one) time for 1 dose. 1 mL 08/20/2024 Active Hospital, Clinic, or Other Facility Administered Medication Ordered Dose Route Frequency Start Date End Date Status denosumab (PROLIA) syringe 60 mgIndications:Osteoporos is, unspecified osteoporosis type, unspecified pathological fracture presence 60 mg subQ Every 6 months 10/12/2024 Act marcus denosumab (PROLIA) syringe 60 mgIndications:Osteoporos is, unspecified osteoporosis type, unspecified pathological fracture presence 60 mg subQ Every 6 months 09/23/2024 Act marcus Active Problems Problem Noted Date Diagnosed Date Allergic rhinitis 01/19/2019 Osteoarthritis 01/19/2019 Osteoporosis 10/16/2017 Hyperlipidemia 05/03/2017 Hypertension 05/03/2017 Insomnia 10/31/2016 Diverticulosis 09/17/2014 Internal hemorrhoids 09/17/2014 Lump or mass in breast 12/25/2013 Immunizations Immunization Administration Dates Next Due Influenza Quadravalent, miah [...] Sign Reading Time Taken Comments Blood Pressure 132/74 10/02/2024 1:00 PM EDT Pulse 70 10/02/2024 1:00 PM EDT Temperature 36.3 C (97.3 F) 10/02/2024 1:00 PM EDT Respiratory Rate - - Oxygen Saturation - - Inhaled Oxygen Concentration - - Weight 59 kg (130 lb) 02/13/2024 12:56 PM EST Height 152.4 cm (5') 02/13/2024 12:56 PM EST Body Mass Index 25.39 02/13/2024 12:56 PM EST Plan of Treatment Upcoming Encounters Date Type Department Care Team (Late st Contact Info) Description 04/09/2025 1:00 PM EST Clinical Support Endocrinology [address] [place] [address] Health Maintenance Due Date Last Done Comments DTaP,Tdap,and Td Vaccines (1 - Tdap) 1964 RSV Immunization Adult Patients (1 - 1-dose 75+ series) 2021 Falls Risk Assessment 03/07/2022 Hepatitis C Screening 03/07/2022 Social Influencers of Health Screening 03/07/2022 Medicare Annual Wellness Visit 08/21/2023 08/20/2022 Depression Screening 04/08/2024 COVID-19 Vaccine ( season) 2024 02/03/2024, 01/30/2023, 02/07/2021, Additional history exists Influenza Vaccine (#1) 2024 , 01/07/2023, 01/15/2022, Additional history exists Hypertension/CHF/CAD Annual BMP Blood Test 09/24/2025 09/24/2024, 02/06/2024, 02/06/2024, Additional history exists Cholesterol Screening (Lipid Panel) 02/05/2029 02/06/2024, 02/06/2024, 08/28/2023 Osteoporosis Screening (Bone Density Screening) 03/07/2033 03/07/2023, 06/19/2019 Pneumococcal Vaccine: 50+ Years Completed 10/16/2017, 03/23/2013 Zoster Vaccines Completed 01/07/2024, 01/07/2023 HIB Vaccines Aged Out No longer eligi [...] age to complete this topic Meningococcal B Vaccine Aged Out No l onger eligible based on patient's age to complete this topic RSV Immunization Patients Under 20 months Aged Out No longer eligible based on patient's age to complete this topic Varicella Vaccines Aged Out No longer eligible based on patient's age to complete this topic Procedures Procedure Name Priority Date/Time Associated Diagnosis Comments CREATININE, SERUM Routine 09/24/2024 9:4 4 AM EDT Osteoporosis, unspecified osteoporosis type, unspecified pathological fracture presence LIPID PANEL Routine 02/06/2024 BOBBY DEXA AXIAL SKELETON Routine 03/07/2023 11:15 AM EST Age-related osteoporosis without current pathological fracture from Last 3 Months or Most Recently Relevant to Health Maintenance Results * Creatinine (09/24/2024 9:44 AM EDT) Creatinine 0.69 0.50 - 1.10 mg/dL LAB CHEMISTRY METHOD 09/24/2024 1:44 PM EDT [facility] eGFR 89 >=60 mL/min/1. 73m2 LAB CHEMISTRY METHOD 09/24/2024 1:44 PM EDT [facility] Comment:Calculation based on the Chronic Kidney Disease Epidemiology Collaboration (CKD-EPI) equation refit without adjustment for race. Blood Venous blood specimen / Unknown Venipuncture / Unknown 09/24/2024 9:44 AM EDT 09/24/2024 9:44 AM EDT Jimmy Gifford MD LAB BLOOD ORDERABLES Final Resul t [facility] [address] [place] [address], [place] [phone] * (ABNORMAL) Lipid panel (02/06/2024) LDL/HDL Ratio 4 0 - 4 Triglycerides 142 0 - 150 mg/dL Cholesterol 190 0 - 200 mg/dL HDL 43 >=40 mg/dL LDL Cholesterol 119(A) 0 - 100 mg/dL Blood Venous blood specimen / Unknown Vianca Pereyra MD LAB BLOOD ORDERABLES Shannan l Result * [facility] DEXA AXIAL SKELETON (03/07/2023 11:15 AM EST) Anatomical Region Laterality Modality Mammography 03/07/2023 10:0 9 AM EST Narrative 03/07/2023 11:15 AM EST [facility] Diagnostic Imaging Department [address] [place] [address] Patient: PEGGYENE/Age/Sex: 1945 - 77 - F Unit#: [id number] Location/Status: SPDIMA/REG CLI Mnemonic/[facility] Ordering Physician: JOSE STEWARD MD [facility] Dexa Axial Skeleton - 03/07/23 - 1102 Report Status:Signed HISTORY: The patient is a 77-year-old postmenopausal female with clinical concern for metabolic bone disease. FINDINGS: Dual [...] 106% of that of age matched controls. This yields a T-score of -1.6 and a Z-score of 0.3 which is diagnostic of osteopenia. IMPRESSION: 1. Osteoporosis. There has been an increase of 0.7% in bone mineral density in the lumbar spine since the prior examination of 06/19/2019. There has been a decrease of 1.7% in bone mineral density in the right femur and an increase of 6.0% in bone mineral density in the left femur. 2. FRAX analysis yields a 10-year probability of major osteoporotic fracture of 9.4% and a 10-year probability of hip fracture of 2.8%. Code 61333 Dictating Physician: RAMONE LOPEZ MD Electronically Signed by: RAMONE LOPEZ MD Dic Date/Time: 03/07/231113 Sign date/Time: 03/07/231114 Procedure Note Ramone Lopez MD - 05/14/2023 [facility] Diagnostic Imaging Department [address] [place] [address] Patient: PEGGYENE./Age/Sex: 1945 - 77 - F Unit#: [id number] Location/Status: [facility] Mnemonic/Ordering [facility] Ordering Physician: JOSE STEWARD MD [facility] Dexa [...] density of the femurs bilaterally is 0.810 gm/[id number] is 80% of that of young normals [...] probability of hip fracture of 2.8%. Code 38022 Dictating Physician: RAMONE LOPEZ MD Electronically Signed by: RAMONE LOPEZ MD Dic Date/Time: 03/07/23 1114 Sign date/Time: 03/07/23 1115 Jose Steward MD IM BI PROCEDURES Final Result from Last 3 Months or Most Recently Relevant to Health Maintenance Insurance [place] [address] MEDICARE Member Subscriber Plan / Payer (Ef fective 2023-Present) Name:ENE WOODS Relation to Subscriber:Self Name:Ene Woods Payer ID:[id number] Group ID:[id number] Type:Not on file Address: [place] [address] [address] [phone] Care Teams Medical Coding Specialist Relationship Specialty Start Date End Date Jose Steward MD [address] [place] [address] [address] [place] [address] PCP - General Internal Medicine 01/16/19
--- OUTSIDE RECORDS SUMMARY | 2025-01-12 12:13 | XMS_ITS ---
Author Name [facility] Organization Unknown Care Team Organization Name Specialty Phone Email Start Date End Da galindo [facility] JANAY VARELA Primary Care 02/13/2022 11/25/19 24
== END 2025-01-12 11:34 | disposition home or self-care (01) ==
LOC: HO.HMCC 10:16
PROVIDERS: PCP Internal Medicine; Visit Provider Internal Medicine
DX: E78.5 Hyperlipidemia, unspecified (principal); F41.9 Anxiety disorder, unspecified; R41.3 Other amnesia

== ENCOUNTER → 2025-01-12 10:15 | Outpatient (BNVA) | payer OTHER, SELFPAY | PROVIDERS: PCP Internal Medicine; Visit Provider Internal Medicine | DX: G47.00 Insomnia, unspecified (principal); F41.9 Anxiety disorder, unspecified; E78.5 Hyperlipidemia, unspecified; R41.3 Other amnesia | CPT/HCPCS: 96127; 99212 ==

== ENCOUNTER 2025-01-15 09:20 | Outpatient (REF) | payer OTHER, SELFPAY ==
--- OUTSIDE RECORDS SUMMARY | 2025-01-15 09:54 | XMS_ITS | Clinical Summary ---
Author Organization [facility] Address [address] [place] [address] Phone Care Team Providers Care Screen Handler Name Role Phone Jose Steward MD Primary Care Provider [phone] Allergies No known active allergies Medications calcium [...] 04/09/2025 1:00 PM EST Clinical Support Endocrinology [address] [place] [address] Health Maintenance Due Date Last Done Comments [...] LAB CHEMISTRY METHOD 09/24/2024 1:44 PM EDT [facility] eGFR 89 >=60 mL/min/1. 73m2 LAB CHEMISTRY METHOD 09/24/2024 1:44 PM EDT [facility] Comment:Calculation based on the Chronic Kidney Disease Epidemiology Collaboration (CKD-EPI) equation refit without adjustment for race. Blood Venous blood specimen / Unknown Venipuncture / Unknown 09/24/2024 9:44 AM EDT 09/24/2024 9:44 AM EDT Jimmy Gifford MD LAB BLOOD ORDERABLES Final Resul t [facility] [address] [place] [address], [place] [phone] * (ABNORMAL) Lipid panel (02/06/2024) LDL/HDL Ratio 4 0 - 4 Triglycerides 142 0 - 150 mg/dL Cholesterol 190 0 - 200 mg/dL HDL 43 >=40 mg/dL LDL Cholesterol 119(A) 0 - 100 mg/dL Blood Venous blood specimen / Unknown Vianca Pereyra MD LAB BLOOD ORDERABLES Shannan l Result * [facility] DEXA AXIAL SKELETON (03/07/2023 11:15 AM EST) Anatomical Region Laterality Modality Mammography 03/07/2023 10:0 9 AM EST Narrative 03/07/2023 11:15 AM EST [facility] Diagnostic Imaging Department [address] [place] [address] Patient: PEGGYENE/Age/Sex: 1945 - 77 - F Unit#: [id number] Location/Status: SPDIMA/REG CLI Mnemonic[facility] Ordering Physician: JOSE STEWARD MD [facility] Dexa Axial Skeleton - 03/07/23 - 1102 [...] probability of hip fracture of 2.8%. Code 50428 Dictating Physician: RAMONE LOPEZ MD Electronically Signed by: RAMONE LOPEZ MD Dic Date/Time: 03/07/231113 Sign date/Time: 03/07/231114 Procedure Note Ramone Lopez MD - 05/14/2023 [facility] Diagnostic Imaging Department [address] [place] [address] Patient: PEGGYENE./Age/Sex: 1945 - 77 - F Unit#: [id number] Location/Status: [facility] Mnemonic[facility] Ordering Physician: JOSE STEWARD MD [...] density of the femurs bilaterally is 0.810 gm/[id number] is 80% of that of young normals [...] probability of hip fracture of 2.8%. Code 38298 Dictating Physician: RAMONE LOPEZ MD Electronically Signed by: RAMONE LOPEZ MD Dic Date/Time: 03/07/23 1114 Sign date/Time: 03/07/23 1115 Jose Steward MD IM BI PROCEDURES Final Result from Last 3 Months or Most Recently Relevant to Health Maintenance Insurance [place] [address] [address] MEDICARE Member Subscriber Plan / Payer (Ef fective 2023-Present) Name:ENE WOODS Relation to Subscriber:Self Name:Ene Woods Payer ID:[id number] Group ID:[id number] Type:Not on file Address: [place] [address] [address] [id number] Care Teams Screen Handler Relationship Specialty Start Date End Date Jose Steward MD [address] [place] [address] [address] [place] [address] PCP - General Internal Medicine 01/16/19
[2025-01-15 10:06] LABS: MANUAL DIFF FLAG NO
[2025-01-15 10:20] LABS: Hematocrit 41.4 % (37.0-47.0); Hemoglobin 13.5 g/dl (12.0-16.0); Imm Gran Abs Auto 0.01 X10*3/uL (0.00-0.03); Imm Gran Pct Auto 0.2 % (0.0-0.4); Lymphocytes Absolute Auto 2.5 X10*3/uL (1.2-4.9); Mean Corpuscular HGB Conc 32.6 g/dl (31.0-35.0); Mean Corpuscular Hemoglobin 29.3 pg (27.0-33.0); Mean Corpuscular Volume 90.0 fL (80.0-98.0); NRBC Abs Auto 0.000 X10*3/uL (0.0-0.012); NRBC Pct Auto 0.0 /100WBC (0.0-0.2); Platelet Count 271 X10*3/uL (160-400); Red Blood Count 4.60 X10*6/uL (4.20-5.50); White Blood Count 6.6 X10*3/uL (4.8-10.8)
[2025-01-15 11:04] LABS: Alanine Aminotransferase 35 U/L (0-31); Albumin Level 4.5 g/dL (3.5-5.0); Alkaline Phosphatase 68 U/L (39-117); Anion Gap 12 (12-20); Aspartate Amino Transferase 38 U/L (5-31); Blood Urea Nitrogen 12 mg/dL (9-16); Calcium 9.6 mg/dL (8.4-10.2); Carbon Dioxide 28 mmol/L (22-29); Chloride 105 mmol/L (96-108); Cholesterol 199 mg/dL (<200); Estimated Glomerular Filt Rate > 60; HDL Cholesterol 38 mg/dL (>40); Potassium 3.8 mmol/L (3.3-5.1); Sodium 141 mmol/L (135-145); Total Protein 7.9 g/dL (6.5-8.0); Triglycerides 151 mg/dL (<150)
[2025-01-15 11:28] LABS: Folate 10.7 ng/mL (> or = 4.0); Vitamin B12 371 pg/mL (200-900)
== END 2025-01-15 09:21 | disposition home or self-care (01) ==
LOC: HO.HMGCLDS 09:20
PROVIDERS: PCP Internal Medicine; Visit Provider Internal Medicine
DX: E78.5 Hyperlipidemia, unspecified (principal); F41.9 Anxiety disorder, unspecified
CPT/HCPCS: 36415; 80053; 80061; 82306; 82607; 82746; 84443; 85025